=== PATIENT | female | born 1970 ===

== ENCOUNTER 2017-02-11 12:15 | Emergency (ER) | payer OTHER ==
[2017-02-11 12:30] VITALS: BP 104/66; PULSE 83; RESP 16; TEMP 97.6; O2SAT 100
--- NOTE | 2017-02-11 13:02 | ED PDOC ---
HPI: Back Time Seen by Provider: 02/11/17 12:27 Chief Complaint (Nursing): Back Pain Chief Complaint (Provider): Back Pain History Per: Patient History/Exam Limitations: no limitations Onset/Duration Of Symptoms: Persistent (x5 months) Current Symptoms Are (Timing): Still Present Additional Complaint(s): Hayley Galvan is a 46 year old female that presents to the ED with a chief complaint of left-sided middle back pain that radiates down to her left leg that she has been experiencing for the past five months. Past Medical History Reviewed: Historical Data, Nursing Documentation, Vital Signs Vital Signs: Last Vital Signs Temp 97.6 F 02/11/17 12:26 Pulse 83 02/11/17 12:26 Resp 16 02/11/17 12:26 BP 104/66 02/11/17 12:26 Pulse Ox 100 02/11/17 12:26 - Medical History PMH: Hypothyroidism Denies: Chronic Kidney Disease - Surgical History Surgical History: - Family History Family History: States: Unknown Family Hx - Home Medications Home Medications: Ambulatory Orders Medication Instructions Recorded [place]/Ca/Cu/mg/Mn/Vit C/Vit 1 tab PO BID #60 tab 09/07/14 [Oscal Ultra 600] Dexamethasone [Decadron] 1 mg PO HS #30 tab 09/07/14 Levothyroxine Sodium 0.125 mg PO DAILY #30 tab 09/07/14 [Levothyroxine] Omeprazole 20 mg PO DAILY #30 ecc 09/07/14 Potassium Chloride 20 meq PO BID #10 10 09/07/14 Cyclobenzaprine [Cyclobenzaprine 10 mg PO Q8H #20 tab 02/11/17 HCl] Ibuprofen [Motrin Tab] 800 mg PO Q6H PRN #20 tab 02/11/17 - Allergies Allergies/Adverse Reactions: Allergies Allergy/AdvReac Type Severity Reaction Status Date / Time Poppy seeds Allergy RASH Uncoded 02/11/17 12:26 Review of Systems Musculoskeletal: Positive for: Back Pain (left-sided middle back), Leg Pain ( left leg ) Physical Exam - Reviewed Nursing Documentation Reviewed: Yes Vital Signs Reviewed: Yes - Physical Exam Appears: Positive for: Non-toxic, No Acute Distress (Patient is obese. ) Head Exam: Positive for: ATRAUMATIC, NORMOCEPHALIC Skin: Positive for: Normal Color, Warm Cardiovascular/Chest: Positive for: Regular Rate, Rhythm. Negative for: Murmur Respiratory: Positive for: Normal Breath Sounds. Negative for: Wheezing Back: Negative for: Normal Inspection (TTP left latissimus dorsi. TTP T1-T7. ) Neurologic/Psych: Positive for: Alert, Oriented. Negative for: Motor/Sensory Deficits - ECG O2 Sat by Pulse Oximetry: 100 (RA) Pulse Ox Interpretation: Normal Medical Decision Making Medical Decision Making: Impression: Sciatica Plan: * Flexeril 10 mg PO * Toradol 30 mg IM * X-Ray T-Spine * Reevaluation X-Ray T-Spine FINDINGS: Examination limited by habitus. BONES: Mild curvature of the thoracic spine convex to the right. Alignment appears otherwise maintained. No acute displaced fracture identified. DISC SPACES: Unremarkable. SOFT TISSUES: Unremarkable. OTHER FINDINGS: None. IMPRESSION: Mild curvature of the thoracic spine convex to the right. No acute displaced fracture or subluxation identified. Please note evaluation limited due to habitus. Cross-sectional imaging may be considered for further evaluation if indicated. 14:23 Instructed patient on how to do proper back exercises in order to relieve pain from sciatica, as well as to follow up with Dr. Lucero. Gave pt Rx for Cyclobenzaprine and Motrin. Stable for discharge home. Scribe Attestation: Documented by Gudelia Ceballos, acting as a scribe for Jazlyn Juan PA-C. Provider Scribe Attestation: All medical record entries made by the Scribe were at my direction and personally dictated by me. I have reviewed the chart and agree that the record accurately reflects my personal performance of the history, physical exam, medical decision making, and the department course for this patient. I have also personally directed, reviewed, and agree with the discharge instructions and disposition. Disposition - Clinical Impression Clinical Impression: Back pain - Patient ED Disposition Is Patient to be Admitted: No Counseled Patient/Family Regarding: Diagnosis, Need For Followup, Rx Given - Disposition Referrals: Maynor Lucero MD [Medical Doctor] - Disposition: Routine/Home Disposition Time: 14:23 Condition: GOOD Prescriptions: Cyclobenzaprine [Cyclobenzaprine HCl] 10 mg PO Q8H #20 tab Ibuprofen [Motrin Tab] 800 mg PO Q6H PRN #20 tab PRN Reason: Pain Instructions: Sciatica (ED), Back Exercises (ED)
--- NOTE | 2017-02-11 14:19 | RAD ---
HISTORY: t-spine pain, radiating to the left COMPARISON: None available. FINDINGS: Examination limited by habitus. BONES: Mild curvature of the thoracic spine convex to the right. Alignment appears otherwise maintained. No acute displaced fracture identified. DISC SPACES: Unremarkable. SOFT TISSUES: Unremarkable. OTHER FINDINGS: None. IMPRESSION: Mild curvature of the thoracic spine convex to the right. No acute displaced fracture or subluxation identified. Please note evaluation limited due to habitus. Cross-sectional imaging may be considered for further evaluation if indicated.
== END 2017-02-11 15:35 | disposition home or self-care (01) ==
LOC: H.ER 12:15
DX: M54.32 Sciatica, left side (principal)

== ENCOUNTER 2017-02-26 16:42 | Emergency (ER) | payer OTHER ==
[2017-02-26] MEDS ORDERED: Sodium Chloride 0.9% 1,000 ML IV STA ×2 (17:25→19:34)
--- NOTE | 2017-02-26 17:30 | ED PDOC ---
HPI: CCC, URI, Sore Throat Time Seen by Provider: 02/26/17 16:46 Chief Complaint (Nursing): ENT Problem Chief Complaint (Provider): ENT Problem History Per: Patient History/Exam Limitations: physical impairment (difficulty speaking) Onset/Duration Of Symptoms: Days (x 3 days) Current Symptoms Are (Timing): Still Present Associated Symptoms: Fever, Sore Throat, Cough Additional History Per: Family (Son) Additional Complaint(s): Hayley Galvan is a 46 y/o female with no past medical history who presents to the emergency department with complaints of a sore throat, fever, and tongue swelling with associated difficulty breathing and speaking, ongoing for 3 days. Patient was able to answer questions by pointing and nodding. She denies having any medical concerns. PMD: Dr. Marco Thomas MD Past Medical History Reviewed: Historical Data, Nursing Documentation, Vital Signs Vital Signs: Last Vital Signs Temp 101.3 F H 02/26/17 20:40 Pulse 95 H 02/26/17 20:40 Resp 18 02/26/17 19:30 BP 105/59 L 02/26/17 19:30 Pulse Ox 95 02/26/17 20:40 - Medical History PMH: Hypothyroidism Denies: Chronic Kidney Disease - Surgical History Surgical History: - Family History Family History: States: Unknown Family Hx - Home Medications Home Medications: Ambulatory Orders Medication Instructions Recorded [place]/Ca/Cu/mg/Mn/Vit C/Vit 1 tab PO BID #60 tab 09/07/14 [Oscal Ultra 600] Dexamethasone [Decadron] 1 mg PO HS #30 tab 09/07/14 Levothyroxine Sodium 0.125 mg PO DAILY #30 tab 09/07/14 [Levothyroxine] Omeprazole 20 mg PO DAILY #30 ecc 09/07/14 Potassium Chloride 20 meq PO BID #10 10 09/07/14 Cyclobenzaprine [Cyclobenzaprine 10 mg PO Q8H #20 tab 02/11/17 HCl] Ibuprofen [Motrin Tab] 800 mg PO Q6H PRN #20 tab 02/11/17 - Allergies Allergies/Adverse Reactions: Allergies Allergy/AdvReac Type Severity Reaction Status Date / Time Poppy seeds Allergy RASH Uncoded 02/26/17 17:03 Review of Systems ROS Statement: Except As Marked, All Systems Reviewed And Found Negative Constitutional: Positive for: Fever ENT: Positive for: Throat Pain, Other (Tongue swelling, resulting in difficulty speaking and breathing) Respiratory: Positive for: Cough Physical Exam - Reviewed Nursing Documentation Reviewed: Yes Vital Signs Reviewed: Yes - Physical Exam Appears: Positive for: Non-toxic, No Acute Distress Head Exam: Positive for: ATRAUMATIC, NORMAL INSPECTION, NORMOCEPHALIC Skin: Positive for: Normal Color, Warm, Dry Eye Exam: Positive for: Normal appearance ENT: Positive for: Tonsillar Swelling (Very erythematous tonsils). Negative for : Tonsillar Exudate Neck: Positive for: Normal, Painless ROM, Supple Extremity: Positive for: Normal ROM. Negative for: Deformity Neurologic/Psych: Positive for: Alert, Oriented - Laboratory Results Result Diagrams: 02/26/17 18:02 02/26/17 18:02 - ECG O2 Sat by Pulse Oximetry: 100 (RA) Pulse Ox Interpretation: Normal Medical Decision Making Medical Decision Making: Time: 17:22 Initial Plan: --CMP --HIV antibody serology --CBC --Rapid strep test --NS IV 1000ml at 1000 mls/hr --Methylprednisolone 125 mg IV Time: 18:00 --Zofran 4 mg IV --NS IV 1000 ml at 1000 mls/hr Time: 18:02 --Group A Beta Strep positive Time: 18:40 --Penicillin G Benzathine 1,200,000 units IM Time: 19:34 --NS IV 1000ml at 1000 mls/hr --Acetaminophen 975 mg PO --Patient tolerated Acetaminophen PO well Scribe Attestation: Documented by Michelle Oliva, acting as a scribe for Jazlyn Juan PA-C Provider Scribe Attestation: All medical record entries made by the Scribe were at my direction and personally dictated by me. I have reviewed the chart and agree that the record accurately reflects my personal performance of the history, physical exam, medical decision making, and the department course for this patient. I have also personally directed, reviewed, and agree with the discharge instructions and disposition. Disposition - Clinical Impression Clinical Impression: Strep pharyngitis - Patient ED Disposition Is Patient to be Admitted: No Counseled Patient/Family Regarding: Diagnosis, Need For Followup - Disposition Disposition: Routine/Home Disposition Time: 20:47 Condition: GOOD Instructions: Strep Throat (ED)
[2017-02-26 18:10] LABS: BASO # 0.2 K/uL (0.0-0.2); BASO % 1.1 % (0.0-2.0); EOS # 0.1 K/uL (0.0-0.7); EOS % 0.5 % (0.0-4.0); HEMOGLOBIN 15.2 g/dL (12.0-16.0); LYMPH # 2.6 K/uL (1.0-4.3); MEAN CELL VOLUME 89.2 fl (81.0-99.0); MEAN CORPUSCULAR HEMOGLOBIN 29.8 pg (27.0-31.0); MEAN CORPUSCULAR HGB CONC 33.4 g/dL (33.0-37.0); MEAN PLATELET VOLUME 8.8 fl (7.2-11.7); MONO # 1.4 K/uL (0.0-0.8); MONO % 8.9 % (0.0-10.0); NEUT # 11.1 K/uL (1.8-7.0); NEUT % 72.5 % (50.0-75.0); RBC 5.11 Mil/uL (3.80-5.20); RED CELL DISTRIBUTION WIDTH 14.7 % (11.5-14.5); WHITE BLOOD COUNT 15.3 K/uL (4.8-10.8)
[2017-02-26 18:25] LABS: ALB/GLOB RATIO 1.3 (1.0-2.1); ALBUMIN 4.9 g/dL (3.5-5.0)
[2017-02-26] MEDS ORDERED: Penicillin G Benzathine 1.2 Mill Unit/2 ml Syr IM ONE (18:40)
[2017-02-26 19:42] VITALS: BP 105/59; RESP 18
[2017-02-26 20:40] VITALS: PULSE 95; TEMP 101.3
[2017-02-26 20:49] VITALS: O2SAT 100
== END 2017-02-26 21:15 | disposition home or self-care (01) ==
LOC: H.ER 16:42
DX: J02.0 Streptococcal pharyngitis (principal); E03.9 Hypothyroidism, unspecified